=== PATIENT | male | born 1985 | race African-American/Black ===

== ENCOUNTER 2016-12-07 19:36 | Emergency (ER) | payer OTHER ==
[2016-12-07 19:42] VITALS: BP 144/83; PULSE 66; TEMP 98.3; BMI 23.7
--- NOTE | 2016-12-07 19:56 | PDOC ---
History of Present Illness - General Chief Complaint: Pain, Acute Stated Complaint: ARM PAIN Time Seen by Provider: 12/07/16 19:52 History Source: Patient Exam Limitations: No Limitations - History of Present Illness Initial Comments: 12/07/16 19:54 31 yr male fell on elbow left playing volleyball about one hour ago. 12/07/16 20:09 Past History - Past Medical History Allergies/Adverse Reactions: Allergies Allergy/AdvReac Type Severity Reaction Status Date / Time No Known Allergies Allergy Verified 08/01/15 10:09 Home Medications: Ambulatory Orders Oxycodone HCl/Acetaminophen [Percocet 5-325 mg Tablet] 1 - 2 tab PO Q6H #12 tab MDD 8 tabs 12/07/16 - Psycho/Social/Smoking Cessation Hx Anxiety: No Suicidal Ideation: No Smoking Status: No Smoking History: Never smoked Number of Cigarettes Smoked Daily: 0 Hx Alcohol Use: No Drug/Substance Use Hx: No Review of Systems - Review of Systems Able to Perform ROS?: Yes Is the patient limited Green[place]ic proficient: No Constitutional: No: Symptoms Reported HEENTM: No: Symptoms Reported Respiratory: No: Symptoms reported Cardiac (ROS): No: Symptoms Reported ABD/GI: No: Symptoms Reported : No: Symptoms Reported Musculoskeletal: Yes: See HPI *Physical Exam - Vital Signs Last Vital Signs Temp Pulse Resp BP Pulse Ox 98.3 F 66 18 144/83 97 12/07/16 19:40 12/07/16 19:40 12/07/16 19:40 12/07/16 19:40 12/07/16 19:40 - Physical Exam General Appearance: Yes: Nourished, Appropriately Dressed HEENT: positive: EOMI, FAVIAN, TMs Normal, Pharynx Normal Neck: positive: Supple Respiratory/Chest: positive: Lungs Clear, Normal Breath Sounds Cardiovascular: positive: Regular Rhythm, Regular Rate Musculoskeletal: positive: Normal Inspection Extremity: positive: Normal Capillary Refill, Swelling (posterior elbow ), Other (decreased ROM due to pain , nv intact cap refill less than 2 seconds all digits ) Integumentary: positive: Normal Color, Dry, Warm Procedures - Splinting Splint Location: Left: Elbow Hand-Made Type: orthoglass (posterior elbow left) Sling: Yes ED Treatment Course - RADIOLOGY Radiology Studies Ordered: Category Date Time Status ELBOW-LEFT [RAD] Stat Radiology 12/07/16 19:42 Taken Medical Decision Making - Medical Decision Making 12/07/16 20:12 cc: fell on left elbow limited ROM due to pain and swelling xray to r/o fracture percocet for pain ortho glass splint placed posterior elbow for pos fracture proximal ulna *DC/Admit/Observation/Transfer Diagnosis at time of Disposition: Elbow fracture, left Qualifiers: Encounter type: initial encounter Fracture type: closed Qualified Code(s): S42.402A - Unspecified fracture of lower end of left humerus, initial encounter for closed fracture - Discharge Dispostion Disposition: HOME Condition at time of disposition: Good - Prescriptions Prescriptions: Oxycodone HCl/Acetaminophen [Percocet 5-325 mg Tablet] 1 - 2 tab PO Q6H #12 tab MDD 8 tabs - Referrals Referrals: Paul Parekh MD [Staff Physician] - - Patient Instructions Additional Instructions: follow with the orthopedist in one week call tomorrow to make appointment take motrin for pain as needed keep the splint placed and keep dry - Post Discharge Activity Work/School Note: Back to Work
== END 2016-12-07 20:12 | disposition home or self-care (01) ==
LOC: JERFT 19:36
PROC: 2W3DX1Z Immobilization of Left Lower Arm using Splint (ICD-10-PCS; principal; 2016-12-07)
DX: S42.402A Unspecified fracture of lower end of left humerus, initial encounter for closed fracture (principal); W18.39XA Other fall on same level, initial encounter; Y93.66 Activity, soccer; Y92.322 Soccer field as the place of occurrence of the external cause
CPT/HCPCS: 73070-TC-LT; 99281-25